=== PATIENT | male | born 1985 ===

== ENCOUNTER → 2021-07-08 | Outpatient (REF) | LOC: M EMP 08:35 | PROVIDERS: ATTEND Family Medicine | DX: Z20.822 Contact with and (suspected) exposure to COVID-19 (principal) ==

== ENCOUNTER → 2021-07-12 | Outpatient (REF) ==
[2021-07-12 15:53] LABS: RSV AMPLIFICATION POSITIVE (NEGATIVE)
== END ==
LOC: M LABSMTC 11:22
PROVIDERS: ATTEND Family Medicine
DX: Z20.822 Contact with and (suspected) exposure to COVID-19 (principal); Z11.52 Encounter for screening for COVID-19